=== PATIENT | female | born 1995 | race Caucasian/White ===

== ENCOUNTER 2022-10-17 14:09 | Outpatient (CLI) | payer BC, SELFPAY ==
--- NOTE | ~2022-10-17 | US_ITS ---
EXAMINATION: US OB <=14 wk fetus w TV DATE: 10/17/2022 15:00 INDICATION: Threatened miscarriage. TECHNIQUE: Real-time transabdominal and transvaginal pelvic ultrasound was performed. COMPARISON: None. FINDINGS: TRANSABDOMINAL ULTRASOUND: The uterus measures 8.0 x 3.5 x 4.2 cm. TRANSVAGINAL ULTRASOUND: There is no visible intrauterine gestational sac. The endometrial thickness is 7 mm. The right ovary measures 2.5 x 1.7 x 3.1 cm. The left ovary measures 2.4 x 1.4 x 3.1 cm. The re is no free fluid in the pelvis. IMPRESSION: 1. No visible intrauterine gestational sac, which may be normal in early . Spontaneous abor tion and ectopic are not excluded. Serial beta hCGs are recommended. Reviewed, dictated and finalized at location A. ET WAITER/WAITRESS IMPRESSION: 1. No visible intrauterine gestational sac, which may be normal in early pregn viral. Spontaneous and ectopic are not excluded. Serial beta hCGs are recommended.
[2022-10-17 15:32] LABS: Beta HCG Quantitative 8.59 mIU/ML
== END 2022-10-17 14:10 | disposition home or self-care (01) ==
PROVIDERS: Visit Provider Obstetrics & Gynecology
DX: O20.9 Hemorrhage in early pregnancy, unspecified (principal)
CPT/HCPCS: 36415; 76801; 76817; 84144; 84702; 86900; 86901

== ENCOUNTER 2022-10-23 15:38 | Outpatient (CLI) | payer BC, SELFPAY ==
[2022-10-23 16:54] LABS: Beta HCG Quantitative < 2.39 mIU/ML
== END 2022-10-23 15:39 | disposition home or self-care (01) ==
PROVIDERS: Visit Provider Obstetrics & Gynecology
DX: O20.9 Hemorrhage in early pregnancy, unspecified (principal); Z3A.00 Weeks of gestation of pregnancy not specified
CPT/HCPCS: 36415; 84702

== ENCOUNTER 2022-12-20 14:54 | Outpatient (CLI) | payer BC, SELFPAY ==
[2022-12-24 04:16] LABS: Progesterone 24.1 ng/mL (***)
== END 2022-12-20 14:55 | disposition home or self-care (01) ==
LOC: ANHLAB 14:54
PROVIDERS: Visit Provider Obstetrics & Gynecology
DX: O09.299 Supervision of pregnancy with other poor reproductive or obstetric history, unspecified trimester (principal)
CPT/HCPCS: 36415; 84144; 84702

== ENCOUNTER 2022-12-22 14:50 | Outpatient (CLI) | payer BC, SELFPAY | END 2022-12-22 14:51 | disposition home or self-care (01) | LOC: ANHLAB 14:51 | PROVIDERS: Visit Provider Obstetrics & Gynecology | DX: O09.299 Supervision of pregnancy with other poor reproductive or obstetric history, unspecified trimester (principal); Z3A.00 Weeks of gestation of pregnancy not specified | CPT/HCPCS: 36415; 84702 ==

== ENCOUNTER 2023-01-22 16:18 | Outpatient (CLI) | payer BC, SELFPAY ==
--- NOTE | ~2023-01-22 | US_ITS ---
Pelvic ultrasound. Clinical History: First trimester , encounter for supervision for normal Technique: Realtime transabdominal and transvaginal scanning of the pelvis was performed. Color flow Doppler and Doppler spectral analysis were performed. Findings: The uterus is anteverted, and contains an intrauterine gestation. [place]-rump length of 2.2 cm corresponds to an estimated gestational age of 9 weeks 0 days. heart rate is 180 bpm. The right ovary measures 3.9 x 1.9 x 2.6 cm. No significant right ovarian or adnexal mass is seen. The left ovary measures 2.7 x 2.5 x 2.6 cm. No significant left ovarian or adnexal mass is seen. There is no evidence of free fluid in the cul de sac. Impression: Live intrauterine gestation with estimated gestational age of 9 weeks 0 days. heart rate is 180 bpm. Sonographic KADE is 08/28/2023. Reviewed, dictated and finalized at location . Impression: Live intrauterine gestation with estimated gestational age of 9 weeks 0 days. F etal heart rate is 180 bpm. Sonographic KADE is 08/28/2023.
== END 2023-01-22 16:19 | disposition home or self-care (01) ==
LOC: ANHIMG 16:20
PROVIDERS: Visit Provider Registered Nurse
DX: Z34.91 Encounter for supervision of normal pregnancy, unspecified, first trimester (principal); Z3A.09 9 weeks gestation of pregnancy
CPT/HCPCS: 76801

== ENCOUNTER 2023-01-24 08:31 | Emergency (ER) | payer BC, SELFPAY ==
[2023-01-24 08:36] VITALS: BP 121/67; PULSE 93; RESP 14; TEMP 36.8; O2SAT 100
--- NOTE | 2023-01-24 08:48 | ED.URI ---
HPI - URI/Sore Throat General Chief Complaint: Upper Respiratory Infection Stated Complaint: sinus infection Source: patient and RN notes reviewed History of Present Illness HPI Narrative: 28-year-old female presents to urgent care with complaints of a worsening cough and congestion over the last week. Patient states she is now having pain in her left lower rib area with deep inhalation. Patient denies shortness of breath or chest pain. Denies any fevers, chills, or sore throat. Patient states she did vomit the other day after coughing. Patient has been taking Tylenol Sinus with minimal relief. Patient is 9 weeks . 1 para 0. Some parts of this dictation were generated by voice recognition software and may contain typographical and/or grammatical inaccuracies. Related Data Home Medications Medication Instructions Recorded Confirmed prenat.vits,hetal,onp-gcee-mbexr 1 tablet PO DAILY 01/05/23 01/24/23 Allergies Allergy/AdvReac Type Severity Reaction Status Date / Time No Known Allergies Allergy Verified 01/24/23 08:45 Review of Systems Review of Systems: Pertinent positives and pertinent negatives per HPI. [facility] Past Medical History Medical History Acne Miscarriage 09/2022 Family History Family History Grandparent Family history of hypercholesterolemia Hypertension Social History Social History (Updated 01/05/23 @ 07:06 by Dayami Esteban MA) Smoking status: Never smoker Alcohol intake: former Alcohol use details: Not since Substance use: never Substance use type: does not use Lack of Transportation: No Lack of Food: Never True Current Housing: I Have Housing Concerned About Future Housing: No Difficulty Paying Gas/Electric Bills: No Difficulty Paying for Meds: No Currently Unemployed: No Education: Bachelor's Degree Difficulty w/ Childcare or Family Care: No Living arrangements: with family 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 There is no relevant family history pertinent to the patient complaint. Exam Narrative: GENERAL: This is a well-nourished, well-developed patient, in no apparent distress. HEAD: normocephalic, atraumatic. EYES: Sclera clear/white. Vision is grossly intact. EARS: External ears normal, auditory canals clear and without drainage, TMs normal without perforation. Hearing grossly intact. NOSE: Congested THROAT: Mucous membranes moist, posterior pharynx erythemic. Hoarse voice NECK: Neck supple, non-tender without lymphadenopathy, masses or thyromegaly. CARDIOVASCULAR: Regular rate and rhythm without murmurs, gallops, or rubs. RESPIRATORY: Clear to auscultation. Breath sounds equal bilaterally. No wheezes, rales, or rhonchi. SKIN: warm, intact with no suspicious lesions or rash, good texture and turgor. NEURO: awake, alert, and oriented to person, place and time. There were no obvious focal neurologic abnormalities. Course Course Level of Care: Express Care Visit Vital Signs Vital signs: Vital Signs Temperature 98.3 F 01/24/23 08:36 Pulse Rate 93 01/24/23 08:36 Respiratory Rate 14 01/24/23 08:36 Blood Pressure 121/67 01/24/23 08:36 Pulse Oximetry 100 01/24/23 08:36 Oxygen Delivery Room Air 01/24/23 08:36 Temperature 98.3 F 01/24/23 08:36 Pulse Rate 93 01/24/23 08:36 Respiratory Rate 14 01/24/23 08:36 Blood Pressure 121/67 01/24/23 08:36 Pulse Oximetry 100 01/24/23 08:36 Oxygen Delivery Room Air 01/24/23 0
== END 2023-01-24 08:56 | disposition home or self-care (01) ==
PROVIDERS: Emergency Provider Nurse Practitioner Family
DX: O99.511 Diseases of the respiratory system complicating pregnancy, first trimester (principal); Z3A.09 9 weeks gestation of pregnancy; J01.90 Acute sinusitis, unspecified
CPT/HCPCS: 99213; G0463

== ENCOUNTER 2023-05-25 07:42 | Outpatient (CLI) | payer BC, SELFPAY ==
[2023-05-25 09:42] LABS: Basophils Percent Auto 0.5 % (0.2-1.2); Eosinophils Absolute Auto 0.1 K/mm3 (0-0.3); Hematocrit 34.1 % (37.0-47.0); Immature Granulocyte Absolute 0.05 K/mm3 (0.00-0.031); Immature Granulocyte Percent A 0.6 % (0-0.5); Lymphocytes Absolute Auto 1.21 K/mm3 (0.9-3.2); Lymphocytes Percent Auto 13.8 % (18.3-44.2); Mean Corpuscular HGB Conc 32.3 g/dl (32-36); Mean Corpuscular Hemoglobin 28.5 pg (26-34); Mean Corpuscular Volume 88.3 fl (80-100); Monocytes Absolute Auto 0.6 K/mm3 (0.1-0.6); Monocytes Percent Auto 7.1 % (2.6-8.5); Neutrophils Absolute Auto 6.8 K/mm3 (1.3-6.7); Platelet Count Result 146 k/mm3 (150-375); Red Blood Count 3.86 M/mm3 (4.2-5.4); Red Cell Distribution Width 13.2 % (11.5-14.5); White Blood Count 8.8 K/mm3 (4.5-10.0)
[2023-05-25 09:57] LABS: Glucose 1 Hour PP 50gm Dose 116 mg/dL
== END 2023-05-25 07:43 | disposition home or self-care (01) ==
LOC: ANHLAB 07:43
PROVIDERS: Visit Provider Registered Nurse
DX: Z34.90 Encounter for supervision of normal pregnancy, unspecified, unspecified trimester (principal)
CPT/HCPCS: 36415; 82947; 85025

== ENCOUNTER 2023-07-06 16:08 | Outpatient (CLI) | payer BC, SELFPAY ==
[2023-07-06 16:23] LABS: Hematocrit 32.9 % (37.0-47.0); Hemoglobin 10.7 g/dL (12.0-15.0); Mean Corpuscular HGB Conc 32.5 g/dl (32-36); Mean Corpuscular Volume 86.1 fl (80-100); Mean Platelet Volume 10.6 fl (7.4-10.4); Platelet Count Result 183 k/mm3 (150-375); Red Blood Count 3.82 M/mm3 (4.2-5.4); Red Cell Distribution Width 13.2 % (11.5-14.5); White Blood Count 9.5 K/mm3 (4.5-10.0)
[2023-07-06 17:19] LABS: HIV 1/2 Ab P24 Ag Result Negative (Negative)
[2023-07-08 21:58] LABS: Rapid Plasma Reagin Non-Reactive (NonReactive)
== END 2023-07-06 16:09 | disposition home or self-care (01) ==
LOC: ANHLAB 16:10
PROVIDERS: Visit Provider Obstetrics & Gynecology
DX: Z34.93 Encounter for supervision of normal pregnancy, unspecified, third trimester (principal)
CPT/HCPCS: 36415; 85027; 86592; 86703; G0432

== ENCOUNTER 2023-08-22 15:06 | Outpatient (RCR) | payer BC, SELFPAY ==
--- NOTE | ~2023-08-22 | US_ITS ---
EXAMINATION: US OB limited DATE: 08/22/2023 16:13 INDICATION: DARRON- Term . TECHNIQUE: Real-time ultrasound of the pelvis was performed. COMPARISON: 01/22/2023 FINDINGS: There is a single living fetus in vertex presentation, longitudinal lie. The placenta is anterior. F etal heart rate is 140 bpm. The amniotic fluid index is 11.4 cm, which is normal (5th to 95th percent ile is 7.2 to 22.6 cm). IMPRESSION: Single living fetus in vertex presentation. Normal DARRON. . Reviewed, dictated and finalized at location K. ATRICIAN
[2023-08-22 16:07] VITALS: BP 108/69; PULSE 93
== END 2023-11-20 23:59 | disposition home or self-care (01) ==
LOC: ANHOBOP 15:06
PROVIDERS: Visit Provider Obstetrics & Gynecology
DX: Z34.93 Encounter for supervision of normal pregnancy, unspecified, third trimester (principal); Z3A.39 39 weeks gestation of pregnancy
CPT/HCPCS: 59025; 76815

== ENCOUNTER 2023-08-29 16:44 | Inpatient (IN) | payer BC, SELFPAY ==
[2023-08-29] VITALS (52 sets, daily range): BP systolic 88–132; BP diastolic 49–99; PULSE 72–121; TEMP 36.5–36.6; O2SAT 97–100; BMI 27.7
[2023-08-29 17:24] LABS: Basophils Percent Auto 0.3 % (0.2-1.2); Eosinophils Percent Auto 0.4 % (0-4.4); Hematocrit 33.8 % (37.0-47.0); Hemoglobin 11.1 g/dL (12.0-15.0); Immature Granulocyte Absolute 0.05 K/mm3 (0.00-0.031); Immature Granulocyte Percent A 0.5 % (0-0.5); Lymphocytes Absolute Auto 1.39 K/mm3 (0.9-3.2); Lymphocytes Percent Auto 13.7 % (18.3-44.2); Mean Corpuscular HGB Conc 32.8 g/dl (32-36); Mean Corpuscular Hemoglobin 27.8 pg (26-34); Mean Corpuscular Volume 84.7 fl (80-100); Monocytes Absolute Auto 0.7 K/mm3 (0.1-0.6); Monocytes Percent Auto 7.2 % (2.6-8.5); Neutrophils Absolute Auto 7.9 K/mm3 (1.3-6.7); Neutrophils Percent Auto 77.9 % (45.5-73.1); Platelet Count Result 225 k/mm3 (150-375); Red Blood Count 3.99 M/mm3 (4.2-5.4); Red Cell Distribution Width 13.8 % (11.5-14.5); White Blood Count 10.1 K/mm3 (4.5-10.0)
--- NOTE | 2023-08-29 17:24 | LDADM ---
This patient, Mitzy Cantu, was admitted to Labor/Delivery/Recovery 104 on 08/29/23 at 16:44. Plans for labor, pain management and were discussed with patient. Patient/family oriented to hospital policies and general routines including ID bracelet, bed and alarms, visiting hours, pain management, procedures, bathroom and other care routines, personal items, smoking policy, room service/diet and guest tray routines, security routines, and visiting hours. Patient/Family are encouraged to report perceived risks to care and to ask questions if they do not understand what they are told or what they should do. See OBIX for further documentation.
--- NOTE | 2023-08-29 17:56 | WPDANESEPP ---
Anes - Eval Pre Procedure Procedure: labor epidural Date/Time: 08/29/23 17:56 Surgeon: varun Preop Diagnosis: pain during labor Pre Op Diagnosis: IOL Patient Data Age: 28 Gender: F Height: 1.68 m Weight: 78 kg Last Vital Signs Pulse 93 08/29/23 17:46 BP 117/66 08/29/23 17:46 O2 Del Method Room Air 08/29/23 17:23 Allergies Allergy/AdvReac Type Severity Reaction Status Date / Time No Known Allergies Allergy Verified 08/22/23 14:20 Home Medications Medication Instructions Recorded Confirmed Type prenat.vits,hetal,wpd-rybd-kqegn 1 tablet PO DAILY 01/05/23 08/22/23 History doxylamine succinate 25 mg tablet 25 mg PO HS PRN Nausea 01/24/23 08/22/23 History (Unisom (doxylamine)) cholecalciferol (vitamin D3) 50 50 mcg PO DAILY 07/26/23 08/22/23 History mcg (2,000 unit) capsule ferrous sulfate 137 mg (45 mg 45 mg PO DAILY 07/26/23 08/22/23 History iron) tablet,extended release (Slow Fe) magnesium 200 mg tablet 200 mg PO DAILY 07/26/23 08/22/23 History Laboratory Tests 08/29/23 17:05 WBC 10.1 H K/mm3 (4.5-10.0) RBC 3.99 L M/mm3 (4.2-5.4) Hgb 11.1 L g/dL (12.0-15.0) Hct 33.8 L % (37.0-47.0) MCV 84.7 fl (80-100) MCH 27.8 pg (26-34) MCHC 32.8 g/dl (32-36) RDW 13.8 % (11.5-14.5) Plt Count 225 k/mm3 (150-375) MPV 11.0 H fl (7.4-10.4) Immature Gran % (Auto) 0.5 % (0-0.5) Neut % (Auto) 77.9 H % (45.5-73.1) Lymph % (Auto) 13.7 L % (18.3-44.2) [place] % (Auto) 7.2 % (2.6-8.5) Eos % (Auto) 0.4 % (0-4.4) Baso % (Auto) 0.3 % (0.2-1.2) Lymph # (Auto) 1.39 K/mm3 (0.9-3.2) [place] # (Auto) 0.7 H K/mm3 (0.1-0.6) Eos # (Auto) 0.0 K/mm3 (0-0.3) Baso # (Auto) 0.0 K/mm3 (0.0-0.1) Abs Immat Gran (auto) 0.05 H K/mm3 (0.00-0.031) Absolute Neuts (auto) 7.9 H K/mm3 (1.3-6.7) Absolute Nucleated RBC 0.0 K/mm3 (0.0-0.012) Nucleated RBC % 0.0 % (0.0-0.2) RPR Pending Patient hx anesthesia problems: none Family hx anesthesia problems: none Results Review: All pre-operative results and documents have been reviewed as part of the pre-operative evaluation. [facility] Past Medical History Medical History Acne BMI 24.0-24.9, adult Miscarriage 09/2022 Family History Family History Grandparent Family history of hypercholesterolemia Hypertension Father Diabetes mellitus Mother No problems noted. 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
[2023-08-29] MEDS: LACTATED RINGERS 1,000 ML 125 ML IV CONT (17:58)
[2023-08-29] MEDS: OXYTOCIN 30 UNITS/NS 500 ML 30 UNITS/500 ML BAG IV CONT (17:59)
--- NOTE | 2023-08-29 22:09 | PM.IMHP ---
H&P: HPI History of Present Illness Date/Time: 08/29/23 22:09 Chief Complaint: Induction of labor Narrative: Patient is a g1 at 41 weeks admitted for [facility] for post dates. Cervix 3 cm on admission PNC uncomplicated. GBS neg. Review of Systems Review of Systems: All systems reviewed & are unremarkable except as noted in HPI and below Constitutional: Constitutional: Reports no additional constitutional complaints and Denies headache(s) Eyes: Eyes: Denies spots in vision ENT: Reports system reviewed and no additional complaints, except as documented and Denies headache(s) Cardiovascular: Cardiovascular: Denies chest pain and Denies dyspnea Respiratory: Respiratory: Denies dyspnea Gastrointestinal: Gastrointestinal: Reports no additional gastrointestinal complaints Genitourinary: Genitourinary: Reports amenorrhea Musculoskeletal: Musculoskeletal: Reports no additional musculoskeletal complaints Integumentary/Breasts: Skin/Breast: Denies breast mass and Denies rash Neurologic: Denies headache(s) Psychiatric: Psychiatric: Reports no additional psychiatric complaints [facility] Past Medical History Medical History Acne BMI 24.0-24.9, adult Miscarriage 09/2022 Family History Family History Grandparent Family history of hypercholesterolemia Hypertension Father Diabetes mellitus Mother No problems noted. 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 [employer] Gender identity (if verbalized by the patient): Female Sexual Orientation (if Verbalized by the Patient): Straight or Heterosexual Spiritual care concerns: No Meds Home Medications and Allergies Home Medications Medication Instructions Recorded Confirmed Type prenat.vits,hetal,rrx-slyu-dtnre 1 tablet PO DAILY 01/05/23 08/22/23 History doxylamine succinate 25 mg tablet 25 mg PO HS PRN Nausea 01/24/23 08/22/23 History (Unisom (doxylamine)) cholecalciferol (vitamin D3) 50 50 mcg PO DAILY 07/26/23 08/22/23 History mcg (2,000 unit) capsule ferrous sulfate 137 mg (45 mg 45 mg PO DAILY 07/26/23 08/22/23 History iron) tablet,extended release (Slow Fe) magnesium 200 mg tablet 200 mg PO DAILY 07/26/23 08/22/23 History Allergies Allergy/AdvReac Type Severity Reaction Status Date / Time No Known Allergies Allergy Verified 08/22/23 14:20 Vital Signs Vital Signs - 24 hr 08/29/23 17:23 08/29/23 17:31 08/29/23 17:46 Pulse Rate 97 93 Blood Pressure 113/73 117/66 Oxygen Delivery Room Air 08/29/23 18:01 08/29/23 18:16 08/29/23 18:31 Pulse Rate 90 93 91 Blood Pressure 111/73 88/55 L 103/71 Oxygen Delivery 08/29/23 18:46 08/29/23 19:01 08/29/23 19:16 Pulse Rate 82 84 83 Blood Pressure 111/67 114/68 107/68 Oxygen Delivery 08/29/23 19:31 08/29/23 19:46 08/29/23 20:01 Pulse Rate 77 105 H 85 Blood Pressure 114/76 119/80 112/63 Oxygen Delivery 08/29/23 20:16 Pulse Rate 85 Blood Pressure 110/69 Oxygen Delivery Exam Const: General: no acute distress Eyes: General: appearance normal, both eyes and all related structures Resp: Effort & Inspection: normal respiratory effort Cardio: Rate: regular rate GI
[2023-08-30] VITALS (148 sets, daily range): BP systolic 81–170; BP diastolic 38–132; PULSE 66–233; RESP 16; TEMP 36.6–37.1; O2SAT 90–100
[2023-08-30] MEDS: ONDANSETRON INJ 4 MG/2 ML VIAL IV PUSH (01:57)
--- NOTE | 2023-08-30 03:25 | PM.OBPNVD ---
OB - PN: Subj Subjective Date/time seen: 08/30/23 03:25 Interval history: fht 155 cat 2, AROM forebag, clear fluid, C/C/+1 OB - PN: Obj Data Labs 08/29/23 17:05 Labs: Laboratory Results - last 24 hr 08/29/23 17:05 WBC 10.1 H RBC 3.99 L Hgb 11.1 L Hct 33.8 L MCV 84.7 MCH 27.8 MCHC 32.8 RDW 13.8 Plt Count 225 MPV 11.0 H Immature Gran % (Auto) 0.5 Neut % (Auto) 77.9 H Lymph % (Auto) 13.7 L [place] % (Auto) 7.2 Eos % (Auto) 0.4 Baso % (Auto) 0.3 Lymph # (Auto) 1.39 [place] # (Auto) 0.7 H Eos # (Auto) 0.0 Baso # (Auto) 0.0 Abs Immat Gran (auto) 0.05 H Absolute Neuts (auto) 7.9 H Absolute Nucleated RBC 0.0 Nucleated RBC % 0.0 Blood Type A Positive Antibody Screen Negative OB - PN A/P Time Spent With Patient Time: Total time spent is greater than 50% in coordination of care (as documented) at patient's floor/unit and/or counseling patient:
[2023-08-30] MEDS: OXYTOCIN 30 UNITS/NS 500 ML 30 UNITS/500 ML BAG 999 UNITS IV CONT (03:40)
--- NOTE | 2023-08-30 04:06 | P.PCNOB_ITS ---
OB - Vaginal Delivery Note Procedure Delivery date: 08/30/23 Induction method: Per Pitocin Protocol Delivery monitor: External FHT Route of delivery: Laceration Description: Perineal - 2nd Degree Delivery repair: vicryl (3.0 vicryl) Specimen: No Quantitative Blood Loss (ml): 200 Anesthesia type: Epidural Disposition: Floor Complications: No immediate complications Narrative: She was admitted for [facility] for post dates. She had pitocin induction. She had spontaneous rupture of clear fluid at 0130. Epidural placed on request. She dilated to complete. Forebag AROM clear. She pushed less than an hour and delivered a male infant. Nose and mouth s uctioned at perineum. Fluid appeared light meconium. The anterior shoulder delivered with gentle traction and the torso and lower extremities delivered. Infant crying and placed on maternal abdomen. Pitocin started. Cord blood and cord gases obtained. Placenta delivered spontaneously and intact. Cord was long and noted to have a true knot. She sustained a second degree perineal laceration repaired with 3.0 vicryl. Baby Date of : 08/30/23 Time of : 03:37 Weeks of gestation at delivery: 41 gender: Male presentation: vertex position: Right Occiput Anterior Placenta delivery description: Spontaneous Cord Vessel Description: 3 Vessels, True Knot, Clamped/Cut and Delayed Cord Clamping score one minute: 8 score five minutes: 9 AMG Delivery Billing Delivery Delivery: Delivery Charge
[2023-08-30] MEDS: OXYTOCIN 30 UNITS/NS 500 ML 30 UNITS/500 ML BAG 125 UNITS IV CONT (05:00)
[2023-08-30] MEDS: ACETAMINOPHEN 325 MG TABLET 650 MG PO ×3 (07:50→22:40)
[2023-08-30] MEDS: IBUPROFEN 600 MG TABLET PO ×3 (07:51→22:40)
[2023-08-30] MEDS: WITCH HAZEL 40 PADS 1 PAD TOPICAL (07:52)
[2023-08-30] MEDS: BENZOCAINE 20% AER SPR (*SP) 56 GM CAN 1 SPRAY TOPICAL (07:52)
--- NOTE | 2023-08-30 08:08 | OBPPTRN ---
Patient transferred to post room #279 via wheelchair. Support person present. Oriented to unit, room, information board, rooming in, admission packet and security measures. Patient verbalizes understanding.
--- NOTE | 2023-08-30 12:19 | PC.NURSE ---
[id number] Re-introductions were made as we have met at the class previously. Mother verbalizes she is able to independently latch infant with appropriate positioning and alignment. She denies any nipple discomfort and is responsively . Infant is currently meeting outcomes for weight, output, jaundice, blood sugar and feeding frequencies of 8-12 times in 24 hours. Mother declines any additional assistance or education at this time. Mother is encouraged to call for assistance if her infant doesn?t latch, pain with latching, questions or concerns. Mother voiced understanding of information shared along with the feeding sheet and mom/baby guide for an additional resource.
[2023-08-30 14:08] LABS: Rapid Plasma Reagin Non-Reactive (NonReactive)
[2023-08-30] MEDS: DOCUSATE SODIUM 100 MG CAPSULE PO (15:38)
[2023-08-31 05:30] LABS: Hematocrit 29.4 % (37.0-47.0); Hemoglobin 9.1 g/dL (12.0-15.0)
[2023-08-31] MEDS: IBUPROFEN 600 MG TABLET PO ×3 (07:29→23:23)
[2023-08-31] MEDS: ACETAMINOPHEN 325 MG TABLET 650 MG PO ×2 (07:30→23:23)
--- NOTE | 2023-08-31 08:26 | P.PNOB_ITS ---
OB - PN: Subj Subjective Date/time seen: 08/31/23 08:26 Interval history: fht 155 cat 2, AROM forebag, clear fluid, C/C/+1 Patient comments: pain well controlled, tolerating diet and other (Decreasing lochia.) [place] baby status: doing well and nursing well OB - PN: Obj Data Labs 08/31/23 04:00 Labs: Laboratory Results - last 24 hr 08/29/23 08/31/23 17:05 04:00 Hgb 9.1 L Hct 29.4 L RPR Non-reactive OB - PN A/P Assessment and Plan (1) Vaginal delivery: Code(s): O80 - Encounter for full-term uncomplicated delivery Status: Acute Assessment and Plan: Doing well. Plan day: 1 Plan: routine care Comments: Patient doing well. Time Spent With Patient Time: Total time spent is greater than 50% in coordination of care (as documented) at patient's floor/unit and/or counseling patient: Exam Psych: Affect: normal affect Other: Abd: fundus firm below umbilicus, nontender Perineum: healing Ext: nontender
[2023-08-31 09:04] VITALS: BP 100/58; PULSE 77; RESP 18; TEMP 36.3; O2SAT 98
[2023-08-31] MEDS: DOCUSATE SODIUM 100 MG CAPSULE PO ×2 (09:50→16:26)
[2023-08-31] MEDS: POLYSACCHARIDE IRON COMPLEX 150 MG CAPSULE PO ×2 (09:50→16:26)
[2023-08-31] MEDS: MULTIVIT/MIN/PREN/FOL AC/IRON TABLET 1 TAB PO (09:51)
--- NOTE | 2023-08-31 11:35 | WPDANLDPN2 ---
Anes-Prog Note L&D Date/Time: 08/31/23 11:35 Comfortable throughout: labor and delivery Neuraxial method: epidural Epidural/Spinal procedure site: clean & non-tender Neuro status: Neuro function grossly intact. Cardiovascular status: normal Respiratory status: normal Airway patency: baseline Mental status: baseline Post-Op hydration status: normal Vital Signs: Last Vital Signs Temp 97.4 F L 08/31/23 09:04 Pulse 77 08/31/23 09:04 Resp 18 08/31/23 09:04 BP 100/58 L 08/31/23 09:04 Pulse Ox 98 08/31/23 09:04 O2 Del Method Room Air 08/31/23 07:20 Pain score (VAS): 0 I/O: Intake & Output 08/30/23 08/31/23 08/31/23 23:59 07:59 15:59 Intake Total 240 Balance 240 Post-procedural complaints: none Patient feedback: Patient satisfied with anesthetic care.
--- NOTE | 2023-08-31 13:47 | PM.OBDSVD ---
DS: Admitting Diagnosis Discharge Date 09/01/23 Admitting Diagnosis Labor DS: Discharge Diagnosis Discharge Diagnosis (1) Vaginal delivery: Code(s): O80 - Encounter for full-term uncomplicated delivery Status: Acute OB - DS: Summary Hospital Course Hospital Course: She was admitted initially for induction of labor but on admission she was noted to have cervical change and chata. She did progress she did need Pitocin augmentation and she did have a vaginal delivery. she did well. She had adequate pain control and was ambulating well, tolerating regular diet. Baby was doing well. She was discharged home on day 2. OB Procedures : Ultrasound OB Procedures Intrapartum: Spontaneous Vag Delivery OB Procedures: : None Peripartum Data Delivery Method: Natural Vaginal Laceration Description: Perineal - 2nd Degree complications: none Status at Discharge Functional status at discharge: independent ambulation Time Spent with Patient Time attestation: Total time spent providing and/or coordinating discharge services: Exam Const: General: cooperative Orientation/consciousness: oriented to person, oriented to place and oriented to time HENMT: Face/Nose/Sinus: Normal external nose present Eyes: General: appearance normal, both eyes and all related structures Resp: Effort & Inspection: normal respiratory effort GI: Inspection: normal to inspection Skin: General skin exam: normal color Neuro: General: oriented to person, oriented to place and oriented to time Extrem: General: normal to inspection and no calf tenderness Psych: Appearance: grossly normal Mental Status: mental status grossly normal DS: Data Data Completed and Pending Labs on day of discharge: Labs from last 24 hours 08/31/23 08/29/23 04:00 17:05 Hgb 9.1 L Hct 29.4 L RPR Non-reactive Discharge Plan Discharge Attending physician on discharge: Eagle Alfaro Consulting providers: Yajaira Byrne; Sonia Milan Discharging Clinician: Huseyin Alex Patient Disposition: Home, Self-Care Activity: may shower, no straining and pelvic rest Diet: regular Discharge Instructions: Education: Mom and Baby Guide Given to: Mother Follow-Up: Call your delivering provider's office for an appointment to be seen in: 2-3 weeks, please call the office for an appointment with Dr. Alfaro Mom and baby should come to the [facility] for the follow-up appointment. Appointment Date/Time: September 03, 2023 at 9:00 am What to expect at your follow-up visit: Physical Assessment Call [phone] if you are unable to keep your appointment time. BREAST CARE: * Wear a snug supportive bra. * For engorgement discomfort: Breast Feeding/Pumping: * Apply warm moist washcloths * Express milk as needed to relieve engorgement * Wear loose clothing Bottle Feeding: * May apply ice packs * For sore nipples: * Identify correct latch-on/Flange size for breast pump * Apply warm moist washcloths before and after nursing * Air dry nipples after nursing * May apply Lansinoh cream to nipples EPISIOTOMY/PERINEAL CARE: * Until bleeding stops, use your radha bottle after urinating * Change your pad frequently throughout the day * You may take sitz baths several times a day (fill your bathtub with warm water and soak for 20 minutes.) Do NOT bathe in the water * No tub baths until seen by your physician - You may shower ACTIVITY: * Rest as much as possible. * Do not exercise or lift anything heavier than your baby (such as laundry or other children.) * Avoid stairs or driving as much as possible. * Do not put anything into the vagina. No douching, tampons, or sexual activity until seen by physician. NOTIFY PHYSICIAN IF YOU HAVE ANY QUESTIONS OR IF ANY OF THE FOLLOWING
--- NOTE | 2023-08-31 16:49 | PC.NURSE ---
1400 Introductions were made, then consulted with patient to assess needs related to . Mother led the conversation with her?plans to feed?her and the?experience so far. Encouraged understanding of the benefits of skin to skin (demonstrating unwrapping infant and placing upright on her chest), stimulating with massage touch, changing positions to encourage wakefulness, how to watch for early feeding cues, responsive feeding, feeding on demand (aiming for 8-12 times in 24 hours, about every 2-3 hours), milk production, building/maintaining a milk supply, duration of feeding, signs of adequate intake/output and how to record on the feeding sheet. Mother works well with her with encouragement and education. Reviewed positioning and ear, shoulder, hip alignment, supporting the breast to facilitate a deep latch, asymmetrical latch (off-center), leading with the chin with a big, open, wide gape and body close to mother. Infant latched optimally to the both breasts in football/cross cradle positions. Education given to the mother of how to visualize the suckling (with good rocking jaw motion), swallows (dropping of the lower jaw) and how to listen for drinking at the breast (the ka sound). was able to maintain latch without pain to mother protecting the nipple with optimal positioning and latching. Reviewed comfort measures of healing with a warm, wet washcloth to rinse breast, then leave open to air-dry, good handwashing when or touching the breast/nipples to prevent infection. Mother voiced understanding of skin to skin, stimulating with massage touch, responsive feedings, hand expressed colostrum, talking to infant to encourage if it has been 2 -2.5 hours since the start of the last , to call if does not latch, or if there is discomfort with . Resources used for education were facilitated with the mom and baby guide, Inpatient resources including feeding sheet given, name written on the communication board, and the mom/baby guide. Parents voiced understanding of information, demonstrated learning and will call if there is a request for assistance. Reported to the Primary RN.
--- NOTE | 2023-08-31 16:53 | PC.NURSE ---
1530 Mother verbalizes she is able to independently latch infant with appropriate positioning and alignment. She denies any nipple discomfort and is responsively . is currently meeting outcomes for weight, output, jaundice, blood sugar and feeding frequencies of 8-12 times in 24 hours. Mother declines any additional assistance or education at this time. Mother is encouraged to call for assistance if her doesn?t latch, pain with latching, questions or concerns. Mother voiced understanding of information shared along with the mom/baby guide for an additional resource. Reported to the Primary RN.
[2023-08-31 19:15] VITALS: BP 114/66; PULSE 98; RESP 18; TEMP 36.5
[2023-09-01] MEDS: POLYSACCHARIDE IRON COMPLEX 150 MG CAPSULE PO (07:22)
[2023-09-01] MEDS: IBUPROFEN 600 MG TABLET PO (07:22)
[2023-09-01] MEDS: MULTIVIT/MIN/PREN/FOL AC/IRON TABLET 1 TAB PO (07:22)
[2023-09-01] MEDS: DOCUSATE SODIUM 100 MG CAPSULE PO (07:22)
--- NOTE | 2023-09-01 08:29 | PM.OBDSVD ---
DS: Admitting Diagnosis Discharge Date 09/01/23 Admitting Diagnosis intrauterine at term DS: Discharge Diagnosis Discharge Diagnosis (1) Vaginal delivery: Code(s): O80 - Encounter for full-term uncomplicated delivery Status: Acute OB - DS: Summary Hospital Course Hospital Course: She was admitted initially for induction of labor but on admission she was noted to have cervical change and chata. She did progress she did need Pitocin augmentation and she did have a vaginal delivery. she did well. OB Procedures : None OB Procedures Intrapartum: Spontaneous Vag Delivery OB Procedures: : None Peripartum Data Laceration Description: Perineal - 2nd Degree Status at Discharge Functional status at discharge: independent ambulation Overall status at discharge: patient is back to baseline Time Spent with Patient Time attestation: Total time spent providing and/or coordinating discharge services: Time spent: Less than 30 minutes Exam Const: General: comfortable and no acute distress Resp: Effort & Inspection: normal respiratory effort Auscultation: clear to auscultation bilaterally Cardio: Rate: regular rate GI: GI Palp: Yes Soft to palpation Auscultation: normal bowel sounds Other: Fundus firm below umbilicus Psych: Appearance: grossly normal Mental Status: mental status grossly normal Affect: normal affect Discharge Plan Discharge Attending physician on discharge: Eagle Alfaro Consulting providers: Yajaira Byrne Discharging Clinician: Huseyin Alex Patient Disposition: Home, Self-Care Activity: may shower, no straining and pelvic rest Diet: regular Patient Instructions: Antibiotic Form, Vaginal Delivery (DC) Stand Alone Forms: General Discharge Information Follow-up/Referrals: Eagle Alfaro MD [Physician] - Call for Appointment (Schedule appointment for 2-3 weeks) Discharge Medications: New ibuprofen 600 mg tablet 600 mg PO Q6H PRN (Reason: pain) Qty: 30 0RF acetaminophen 500 mg tablet 500 mg PO Q6H PRN (Reason: pain) Qty: 30 0RF Continued prenat.vits,hetal,nrn-bqlv-hfenb Tablet 1 tablet PO DAILY magnesium 200 mg tablet 200 mg PO DAILY Slow Fe 137 mg (45 mg iron) tablet extended release 45 mg PO DAILY cholecalciferol (vitamin D3) 50 mcg (2,000 unit) capsule 50 mcg PO DAILY Discontinued Unisom (doxylamine) 25 mg Tablet 25 mg PO HS PRN (Reason: Nausea) Date of admission: 08/29/23 16:44 Primary Care Provider: UNKNOWN,DOCTOR Admitting Provider: Eagle Alfaro Attending physician on admission: Eagle Alfaro Condition: Stable
[2023-09-01 09:25] VITALS: BP 106/66; PULSE 91; RESP 18; TEMP 36.6; O2SAT 97
--- NOTE | 2023-09-01 11:03 | PC.NURSE ---
Patient was given the opportunity to view the discharge video Mother & Baby Care, The First Two Weeks and to ask questions online. Patient declined viewing the video and has been given the mother/baby guide for home reference.
[2023-09-03 09:20] VITALS: BP 115/64; PULSE 92; RESP 18; TEMP 36.6; O2SAT 99
== END 2023-09-01 13:40 | disposition home or self-care (01) | DRG 807 ==
LOC: ANHOB2 09-01 11:13 → ANHLDR 09-04 07:35 → ANHOB2 09-04 07:35
PROVIDERS: Admitting Provider Obstetrics & Gynecology; Visit Provider Student in an Organized Health Care Education/Training Program
DX: O70.1 Second degree perineal laceration during delivery (principal); Z37.0 Single live birth; O77.0 Labor and delivery complicated by meconium in amniotic fluid; Z3A.41 41 weeks gestation of pregnancy
CPT/HCPCS: 36415; 85014; 85018; 85025; 86592; 86850; 86900; 86901; A9270; J2405; J2590; J2795; J7120